=== PATIENT | male | born 1985 | race Caucasian/White ===

== ENCOUNTER 2018-06-30 12:37 | Emergency (ER) | payer OTHER ==
[~2018-06-30] VITALS: Ht 182.9 cm; Wt 90.7 kg
[~2018-06-30 12:37] MED LIST: BICA50 PO; BRETHINE PO; BUPR100 PO; DOXE50 PO; FLUO10; FLUO10 PO; Hydroxyzine HCl50 MG PO; LAMO25 PO; LAMO5; NAPR550 PO; QUET200 PO; TERB5 PO; Ultram50 MG PO
[2018-06-30] MEDS ORDERED: TERB5 PO (13:08)
== END 2018-06-30 13:17 | disposition home or self-care (01) ==
LOC: ER 12:37
DX: N48.30 Priapism, unspecified (principal); Z76.0 Encounter for issue of repeat prescription; Z88.8 Allergy status to other drugs, medicaments and biological substances; Z79.899 Other long term (current) drug therapy
CPT/HCPCS: 99281

== ENCOUNTER 2018-07-15 08:05 | Emergency (ER) | payer OTHER ==
[~2018-07-15] VITALS: Ht 182.9 cm; Wt 95.2 kg
== END 2018-07-15 13:10 | disposition short-term general hospital (02) ==
LOC: ER 08:05
DX: N48.30 Priapism, unspecified (principal); Z88.8 Allergy status to other drugs, medicaments and biological substances; Z87.891 Personal history of nicotine dependence
CPT/HCPCS: 54220; 96372-59; 99284-25; A9270-GY; J2370

== ENCOUNTER → 2018-07-19 | Outpatient (CLI) | payer OTHER ==
[~2018-07-19] MED LIST changes: +Augmentin 875-1 EACH PO; +BICALUTAMIDE50 MG PO; +NEOPOLHCSU RIGHTEAR
[2018-07-22 07:07] LABS: CHLAMYDIA TRACHOMATIS, NAA Negative (Negative); NEISSERIA GONORRHOEAE, NAA Negative (Negative)
== END | disposition home or self-care (01) ==
LOC: LAB SHORT 10:15 → LAB SRC 10:15
PROVIDERS: Nurse Practitioner Family
DX: Z72.52 High risk homosexual behavior (principal)
CPT/HCPCS: 87491; 87591

== ENCOUNTER 2018-09-09 10:48 | Emergency (ER) | payer OTHER ==
[~2018-09-09] VITALS: Ht 182.9 cm; Wt 106.6 kg
[~2018-09-09 10:48] MED LIST changes: -Augmentin 875-1 EACH PO; -BICALUTAMIDE50 MG PO; -NEOPOLHCSU RIGHTEAR
[2018-09-09 12:45] LABS: Calcium, Ionized (POC) 1.21 mmol/L (1.10-1.46); Chloride (POC) 101 mmol/L (98-108); Creatinine (POC) 1.1 mg/dL (0.8-1.3); Glucose (ISTAT POC) 87 mg/dL (70-99); Hemoglobin (POC) 15.6 g/dL (13.5-17.5); Sodium (POC) 138 mmol/L (135-148); Total CO2 (POC) 28 mmol/L (21-32)
[2018-09-09] MEDS ORDERED: Augmentin 875-1 EACH PO (13:33)
[2018-09-09] MEDS ORDERED: NEOPOLHCSU RIGHTEAR (13:33)
== END 2018-09-09 13:45 | disposition home or self-care (01) ==
LOC: ER 10:48
PROVIDERS: Physician Assistant
DX: H60.91 Unspecified otitis externa, right ear (principal); Z87.891 Personal history of nicotine dependence; Z88.8 Allergy status to other drugs, medicaments and biological substances
CPT/HCPCS: 36415; 70487; 80047; 85014; 99283-25; Q9967

== ENCOUNTER 2018-10-16 11:13 | Emergency (ER) | payer OTHER ==
[~2018-10-16] VITALS: Ht 182.9 cm; Wt 99.8 kg
[~2018-10-16 11:13] MED LIST changes: +Augmentin 875-1 EACH PO; +NEOPOLHCSU RIGHTEAR
[2018-10-16] MEDS ORDERED: BICALUTAMIDE50 MG PO (11:25)
== END 2018-10-16 11:59 | disposition left against medical advice (07) ==
LOC: ER 11:13
DX: Z53.21 Procedure and treatment not carried out due to patient leaving prior to being seen by health care provider (principal)

== ENCOUNTER 2020-07-27 21:07 | Emergency (ER) | payer OTHER ==
[~2020-07-27] VITALS: Ht 182.9 cm; Wt 99.8 kg
[~2020-07-27 21:07] MED LIST changes: +BICALUTAMIDE50 MG PO
[2020-07-27 22:00] LABS: Calcium, Ionized (POC) 1.21 mmol/L (1.10-1.46); Chloride (POC) 102 mmol/L (98-108); Glucose (ISTAT POC) 82 mg/dL (70-99); Sodium (POC) 139 mmol/L (135-148); Total CO2 (POC) 24 mmol/L (21-32)
== END 2020-07-27 23:36 | disposition home or self-care (01) ==
LOC: ER 21:07
PROVIDERS: Emergency Medicine
DX: S29.9XXA Unspecified injury of thorax, initial encounter (principal); S39.012A Strain of muscle, fascia and tendon of lower back, initial encounter; S61.012A Laceration without foreign body of left thumb without damage to nail, initial encounter; N48.30 Priapism, unspecified; F17.290 Nicotine dependence, other tobacco product, uncomplicated
CPT/HCPCS: 36415; 54235; 71260; 74177; 80047; 85014; 99284-25; A9270; J2370; Q9967

== ENCOUNTER 2022-08-02 16:14 | Inpatient (IN) | payer OTHER ==
[~2022-08-02] VITALS: Ht 185.4 cm; Wt 84.5 kg
[~2022-08-02 16:14] MED LIST changes: +CEPH500 PO; +OXAYDO5 M1 PO
[2022-08-02 17:42] LABS: BASOPHILS ABSOLUTE AUTO 0.07 K/mm3 (0.00-0.23); BASOPHILS PERCENT AUTO 1 % (0-2); EOSINOPHILS ABSOLUTE AUTO 0.15 K/mm3 (0.00-0.68); EOSINOPHILS PERCENT AUTO 2 % (0-6); Hematocrit 44.2 % (37.0-53.0); Hemoglobin 15.2 g/dL (13.5-17.5); IMMATURE GRAN ABSOLUTE AUTO 0.01 K/mm3 (0.00-0.10); IMMATURE GRAN PERCENT AUTO 0 % (0-1); LYMPHOCYTES PERCENT AUTO 27 % (21-46); MONOCYTES ABSOLUTE AUTO 0.64 K/mm3 (0.16-1.47); MONOCYTES PERCENT AUTO 8 % (4-13); Mean Corpuscular HGB 29.3 pg (26.0-34.0); Mean Corpuscular HGB Conc 34.4 g/dL (31.5-36.5); Mean Corpuscular Volume 85 fL (80-100); Mean Platelet Volume 9.2 fL (9.1-12.4); NEUTROPHILS ABSOLUTE AUTO 5.34 K/mm3 (1.96-9.15); NEUTROPHILS PERCENT AUTO 63 % (41-73); Platelet Count 337 K/mm3 (150-400); RDW Coefficient Variation 12.1 % (11.7-14.2); RDW Standard Deviation 37.6 fL (35.1-46.3); Red Blood Cell Count 5.19 M/mm3 (4.30-5.90); White Blood Cell Count 8.51 K/mm3 (4.00-11.30)
[2022-08-02 18:04] LABS: Albumin, Blood 3.8 g/dL (3.4-5.0); Bilirubin, Total 0.9 mg/dL (0.1-1.0); Bun/Creatinine Ratio 13.4 (12.0-20.0); Calcium, Blood 9.3 mg/dL (8.5-10.1); Creatinine, Blood 1.27 mg/dL (0.60-1.20); Globulin, Blood 3.9 g/dL (2.2-4.0); Potassium, Blood 4.4 mmol/L (3.5-5.5); Total Protein, Blood 7.7 g/dL (6.4-8.2)
[2022-08-02 22:51] VITALS: BP 130/86
[2022-08-03 04:42] VITALS: BP 113/73
[2022-08-03 05:23] LABS: BASOPHILS ABSOLUTE AUTO 0.07 K/mm3 (0.00-0.23); BASOPHILS PERCENT AUTO 1 % (0-2); EOSINOPHILS ABSOLUTE AUTO 0.29 K/mm3 (0.00-0.68); EOSINOPHILS PERCENT AUTO 3 % (0-6); Hematocrit 41.3 % (37.0-53.0); Hemoglobin 14.1 g/dL (13.5-17.5); IMMATURE GRAN ABSOLUTE AUTO 0.02 K/mm3 (0.00-0.10); IMMATURE GRAN PERCENT AUTO 0 % (0-1); LYMPHOCYTES ABSOLUTE AUTO 3.71 K/mm3 (0.84-5.20); LYMPHOCYTES PERCENT AUTO 41 % (21-46); MONOCYTES PERCENT AUTO 9 % (4-13); Mean Corpuscular HGB 29.7 pg (26.0-34.0); Mean Corpuscular HGB Conc 34.1 g/dL (31.5-36.5); Mean Corpuscular Volume 87 fL (80-100); Mean Platelet Volume 9.4 fL (9.1-12.4); NEUTROPHILS ABSOLUTE AUTO 4.27 K/mm3 (1.96-9.15); NEUTROPHILS PERCENT AUTO 47 % (41-73); Platelet Count 336 K/mm3 (150-400); RDW Coefficient Variation 12.3 % (11.7-14.2); RDW Standard Deviation 39.3 fL (35.1-46.3); Red Blood Cell Count 4.74 M/mm3 (4.30-5.90); White Blood Cell Count 9.16 K/mm3 (4.00-11.30)
[2022-08-03 06:05] LABS: Albumin, Blood 3.3 g/dL (3.4-5.0); Bilirubin, Total 0.7 mg/dL (0.1-1.0); Bun/Creatinine Ratio 16.2 (12.0-20.0); Calcium, Blood 8.5 mg/dL (8.5-10.1); Creatinine, Blood 1.3 mg/dL (0.60-1.20); Globulin, Blood 3.3 g/dL (2.2-4.0); Potassium, Blood 3.6 mmol/L (3.5-5.5); Total Protein, Blood 6.6 g/dL (6.4-8.2)
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
[2022-08-03 07:42] VITALS: BP 106/71
[2022-08-03 15:43] VITALS: BP 91/65
[2022-08-03 16:11] LABS: Vancomycin, Trough 20.1 ug/mL (5.0-10.0)
[2022-08-03 17:26] VITALS: BP 128/91
--- NOTE | 2022-08-03 17:38 | NUR ---
PATIENT WITH PAIN TODAY MEDICATED PER EMAR WITH RELEIF, SOME NAUSEA THIS MORNING. VANCOMYCIN 1600 DOSE NOT BROUGHT UP UNTIL 1700 DUE TO WAITING ON LAB FOR VANCO TROUGH. PATIENT LEFT FLOOR AT 1510, SO EVENING VANCO NOT YET STARTED.
[2022-08-03 18:03] VITALS: BP 105/80
[2022-08-03 19:26] VITALS: BP 150/94
[2022-08-04] VITALS (11 sets, daily range): BP systolic 104–146; BP diastolic 67–97
[2022-08-04 05:34] LABS: BASOPHILS ABSOLUTE AUTO 0.04 K/mm3 (0.00-0.23); BASOPHILS PERCENT AUTO 1 % (0-2); EOSINOPHILS ABSOLUTE AUTO 0.18 K/mm3 (0.00-0.68); EOSINOPHILS PERCENT AUTO 3 % (0-6); Hemoglobin 12.8 g/dL (13.5-17.5); IMMATURE GRAN ABSOLUTE AUTO 0.01 K/mm3 (0.00-0.10); IMMATURE GRAN PERCENT AUTO 0 % (0-1); LYMPHOCYTES ABSOLUTE AUTO 2.45 K/mm3 (0.84-5.20); LYMPHOCYTES PERCENT AUTO 46 % (21-46); MONOCYTES ABSOLUTE AUTO 0.41 K/mm3 (0.16-1.47); MONOCYTES PERCENT AUTO 8 % (4-13); Mean Corpuscular HGB Conc 34.6 g/dL (31.5-36.5); Mean Corpuscular Volume 87 fL (80-100); Mean Platelet Volume 9.3 fL (9.1-12.4); NEUTROPHILS ABSOLUTE AUTO 2.22 K/mm3 (1.96-9.15); NEUTROPHILS PERCENT AUTO 42 % (41-73); Platelet Count 249 K/mm3 (150-400); RDW Coefficient Variation 12.1 % (11.7-14.2); RDW Standard Deviation 38.5 fL (35.1-46.3); Red Blood Cell Count 4.26 M/mm3 (4.30-5.90); White Blood Cell Count 5.31 K/mm3 (4.00-11.30)
--- NOTE | 2022-08-04 06:02 | NUR ---
SHIFT SUMMARY PT HAD A LARGE AMOUNT OF FOOD AND DRINKS AFTER BEING CLEARED TO EAT UNTIL MIDNIGHT. PT FELT NAUSEOUS RIGHT AFTER CONSUMPTION, PRN ZOFRAN GIVEN WITH NO EFFECT. SUGGEST PT SMELL ALCOHOL PADS, THIS SUBSIDED NAUSEA AND PT REQUESTED MORE FOOD. NOTHING TO EAT OR DRINK AFTER MIDNIGHT. PRN PAIN MEDICATION REQUESTED ONE TIME. PT RESTING COMFORTABLY.
[2022-08-04 06:15] LABS: Bun/Creatinine Ratio 11.8 (12.0-20.0); Calcium, Blood 8.2 mg/dL (8.5-10.1); Creatinine, Blood 1.1 mg/dL (0.60-1.20)
--- NOTE | 2022-08-04 08:48 | NUR ---
PLACED $92 IN SAFE, LOCKED PER PT REQUEST.
--- NOTE | 2022-08-04 14:44 | NUR ---
THE PATIENT WAS BROUGHT TO DAY SURGERY FOR HIS PROCEDURE.
--- NOTE | 2022-08-04 18:13 | NUR ---
SHIFT SUMMARY PATIENT IS ALERT AND ORIENTED. PATIENT HAS HAD SURGERY ON FOREARM. SURGERY WENT WELL ACCORDING TO NOTES. PATIENT HAS HAD COMPLAINTS OF PAIN, MEDICATED PER EMAR. PATIENT HAS NOT COMPLAINED OF SOB, NAUSEA, OR VOMITTING. PATIENT IS IND IN ROOM. PATIENT HAS BEEN GETTING ABX SCHEDULED. PATIENT HAS BEEN PLEASENT AND COOPERATIVE WITH CARE. BED IN LOCKED AND LOWEST POSITION. CALL LIGHT IN PLACE. WILL MONITOR UNTIL SHIFT CHANGE.
[2022-08-04 18:26] LABS: Vancomycin, Trough 17.4 ug/mL (5.0-10.0)
[2022-08-05 04:05] VITALS: BP 110/82
--- NOTE | 2022-08-05 05:58 | NUR ---
SHIFT SUMMARY PT SLEPT WELL OVERNIGHT. PRN PERCOCET GIVEN TWICE DURING SHIFT FOR PAIN WITH POSITIVE RESULTS, AND ONE COMPLAINT OF NAUSEA, RESOLVED WITH PRN ZOFRAN ADMIN. PT RESTING COMFORTABLY WITH CALL HOSKINS IN REACH
[2022-08-05 07:54] VITALS: BP 104/80
[2022-08-05 08:37] LABS: BASOPHILS ABSOLUTE AUTO 0.04 K/mm3 (0.00-0.23); BASOPHILS PERCENT AUTO 0 % (0-2); EOSINOPHILS ABSOLUTE AUTO 0.04 K/mm3 (0.00-0.68); EOSINOPHILS PERCENT AUTO 0 % (0-6); Hemoglobin 13.9 g/dL (13.5-17.5); IMMATURE GRAN ABSOLUTE AUTO 0.04 K/mm3 (0.00-0.10); IMMATURE GRAN PERCENT AUTO 0 % (0-1); LYMPHOCYTES PERCENT AUTO 20 % (21-46); MONOCYTES ABSOLUTE AUTO 0.95 K/mm3 (0.16-1.47); MONOCYTES PERCENT AUTO 8 % (4-13); Mean Corpuscular HGB 29.3 pg (26.0-34.0); Mean Corpuscular HGB Conc 33.9 g/dL (31.5-36.5); Mean Corpuscular Volume 87 fL (80-100); Mean Platelet Volume 9.3 fL (9.1-12.4); NEUTROPHILS ABSOLUTE AUTO 8.86 K/mm3 (1.96-9.15); NEUTROPHILS PERCENT AUTO 72 % (41-73); Platelet Count 311 K/mm3 (150-400); RDW Coefficient Variation 11.9 % (11.7-14.2); RDW Standard Deviation 37.8 fL (35.1-46.3); Red Blood Cell Count 4.74 M/mm3 (4.30-5.90); White Blood Cell Count 12.33 K/mm3 (4.00-11.30)
[2022-08-05 08:59] LABS: Bun/Creatinine Ratio 15.4 (12.0-20.0); Calcium, Blood 8.5 mg/dL (8.5-10.1); Creatinine, Blood 1.17 mg/dL (0.60-1.20); Potassium, Blood 4.2 mmol/L (3.5-5.5)
[2022-08-05 15:16] VITALS: BP 123/81
--- NOTE | 2022-08-05 16:48 | NUR ---
SHIFT SUMMARY PATIENT WITH SOME PAIN THIS MORNING, MEDICATED PER EMAR WITH PERCOCET, NO IV PAIN MED NEEDED TODAY. EDUCATION PROVIDED ON ELEVATION OF EXTREMETY, PATIENT REPORTS THIS HAS HELPED REDUCE PAIN SIGNIFICANTLY. PARTNER PRESENT IN ROOM MOST OF DAY. PATIENT COOPERATIVE WITH CARE. BED IN LOW POSITION, CALL LIGHT IN REACH. WILL CONTINUE TO MONITOR.
[2022-08-05 20:43] VITALS: BP 162/111
--- NOTE | 2022-08-06 03:30 | NUR ---
SHIFT SUMMARY NOC PT A/O X 4. PLEASANT AND COOPERATIVE WITH CARE. PT HAS BRENTON DRESSING IN PLACE OVER RIGHT ARM FROM I/D PERFORMED 08/05/22, DRESSING C/D/I. NO ACUTE CHANGES TO REPORT. PT TAKING ZOSYN/VANCO ABX FOR INFECTION. PT HAS HAD NO C/O OF URINATION ISSUES DURING SHIFT. PT IS CURRENTLY RESTING WITH BED IN LOWEST POSITION, AND CALL LIGHT WITHIN REACH.
[2022-08-06 03:33] VITALS: BP 128/65
--- NOTE | 2022-08-06 03:50 | NUR ---
SHIFT SUMMARY NOC PT A/O X 4. PLEASANT AND COOPERATIVE WITH CARE. PT HAS BRENTON DRESSING IN PLACE OVER RIGHT ARM FROM I/D PERFORMED 08/05/22, DRESSING C/D/I. NO ACUTE CHANGES TO REPORT. PT TAKING ZOSYN/VANCO ABX FOR INFECTION. PT HAS HAD NO C/O OF URINATION ISSUES DURING SHIFT. PT EDUCATED ON [facility] IGNITION/NON SMOKING POLICY. PT IS CURRENTLY RESTING WITH BED IN LOWEST POSITION, AND CALL LIGHT WITHIN REACH.
--- NOTE | 2022-08-06 04:22 | NUR ---
PT RECEIVED EDUCATION ON [facility] EXPLOSIVE IGNITION MATERIALS SAFETY POLICY.
[2022-08-06 07:41] VITALS: BP 111/71
--- NOTE | 2022-08-06 08:00 | NUR ---
PT PLEASNT COOP A/O X3. TALKATIVE. STATES PAIN IN RT ARM . CURRENTLY WRAPPED IN BRENTON BANDAGE. PULSES FELT AT WRIST. FINGERS NORMAL PINK WARM, COLOR. NO DRAINAGE NOTED. H/R REG, NO MURMUR NOTED. NO TELE. LUNGS CLEAR, RESP EASY, UNLABORED. ON R.A. BT X4 LAST BM TODAY. STATES IS DIARRHEA SINCE LAST NITES. WILL SPEAK TO DRCarlo WHEN SEE. VIODS INDEPENDANT TO BATHROOM. BED IN LOW POSITION, CALLLITE IN REACH. S/O FRIEND LYING ON BED AT SIDE. PT STAATES DOES SMOKE, DOES NOT HAVE ANY SMOKING ITEMS HERE. HAS NICOTINE PATCH. DENIES ANY IGNITION FLAMMABLE ITEMS
[2022-08-06 09:46] LABS: Creatinine, Blood 0.99 mg/dL (0.60-1.20); Vancomycin, Trough 15.3 ug/mL (5.0-10.0)
--- NOTE | 2022-08-06 12:11 | NUR ---
PT STATES DIARRHEA SINCE ABX. SPOKE TO DR LOZA. ORDERS FOR ANTIDIARHEAL
[2022-08-06 14:58] VITALS: BP 112/74
--- NOTE | 2022-08-06 15:14 | NUR ---
PT REPORTS DIZZINESS AND CONTINUED DIARRHEA. GAVE LOMICTAL. CALLED DR LOZA, RECOMMENDS MORE WATER AND REST. 2 LARGE WATER CUPS GIVEN
--- NOTE | 2022-08-06 18:32 | NUR ---
PT PLEASNT TODAY. STATES WAS DIZZY OR LIGHT HEADED DURING AMBULATION TO BATHROOM R/T DIARRHEA. ENCOURAGED MORE FLUID INTAKE. BROUGHT 2 LARGE CONTAINERS WATER. CALLED DR LOZA. IMMODIUM ORDERED AND GIVEN, ALONG WITH IINCREASED FLUID INTAKE. PT STATES IS PRESENTLY HOMELESS AND CARE MANAGEMENT STATES MIGHT BE ABLE TO FIND HOUSING, DR ALCOCER. DR URENA IN TO CHANGE DRESSING. LOOKS CDI. REPACKED. ORDERS FOR DAILY CHANGE. NO OTHER CONCERNS NOTED. BED IN LOW POSITION, CALL LITE IN REACH, CALLS APPROP
[2022-08-06 19:25] VITALS: BP 122/76
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
[2022-08-07 05:31] VITALS: BP 100/70
[2022-08-07 07:45] VITALS: BP 123/84
[2022-08-07 15:59] VITALS: BP 138/110
[2022-08-07 16:42] VITALS: BP 148/99
--- NOTE | 2022-08-07 17:59 | NUR ---
NURSE NOTE PATIENT WAS EDUCATED AND ASSESSED FOR FIRE RISK
[2022-08-07 19:36] VITALS: BP 135/89
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
[2022-08-08 07:20] VITALS: BP 113/74
--- NOTE | 2022-08-08 08:48 | NUR ---
pt sitting on side of bed asking for pain meds, a/ox4, cooperative with care, follows commands well, reports pain at 6/10, medicated per emar, lungs are clear t/o, resp even and unlabored, no cough noted, on r/a, hrr, no edema noted, ppp+2, cap refill<3sec, vs stable, afebrile, btx4, abd flat soft nontender, voids without diff, skin c/w/d, maew, hernandez, call light in reach.
--- NOTE | 2022-08-08 13:12 | NUR ---
pt dressing was changed and repacked, pt medicated prior and tolerated well. up ad sheila in room and out in halls. call light in reach.
[2022-08-08 15:58] VITALS: BP 152/97
--- NOTE | 2022-08-08 18:13 | NUR ---
pt had an uneventful day, motel secured for him and he is happy about that, dressing was changed today, pt tolerated well, instructed if any sources of ignition, was denied, no further changes this shift. call light in reach.
[2022-08-08 19:27] VITALS: BP 136/104
[2022-08-09 05:00] VITALS: BP 115/78
--- NOTE | 2022-08-09 05:20 | NUR ---
Shift Summary Pt c/o pain in R arm, medicated per emar. Dressing C/D/I t/o shift. Slept well t/o most of the shift. AOx4, independent in room, VSS.
[2022-08-09 07:28] VITALS: BP 141/126
[2022-08-09 07:34] VITALS: BP 116/87
[2022-08-09] MEDS ORDERED: AMOX-CLAV 875-1 EAC5 PO (10:28)
[2022-08-09] MEDS ORDERED: Percocet 5-3251 EACH PO (10:29)
--- NOTE | 2022-08-09 15:17 | NUR ---
PT DISCHARGED WITH DC INSTRUCTIONS- HAS HARD SCRIPT FOR PERCOCET. SENT HOME WITH BELONGINGS. WHEELCHAIR OUT TO [facility]OU[facility] TO [facility] FOR 2 WEEKS. PT INSTRUCTED TO FOLLOWUP WITH OUTPATIENT WOUND CLINIC. DRESSING CHANGED TO RFA AT 1245 JUST PRIOR TO DC. PACKED WOUND WITH IODIFORM GAUZE, XEREFORM AND ABD, KERLEX AND BRENTON. MEDICATED FOR PAIN PRIOR AT 1210. PT VERBALIZED UNDERSTANDING OF ALL INSTRUCTIONS.
== END 2022-08-09 13:09 | disposition home or self-care (01) | DRG 856 ==
LOC: ER 16:14 → MEDS 22:41 → SURS 22:41 → MEDS 22:46 → ENPENDDIS 08-09 10:47 → MEDS 08-09 13:09
PROVIDERS: Internal Medicine; Orthopaedic Surgery; Physician Assistant; ADMIT Internal Medicine
PROC: 3E03329 Introduction of Other Anti-infective into Peripheral Vein, Percutaneous Approach (ICD-10-PCS; 2022-08-02)
PROC: 0K990ZZ Drainage of Right Lower Arm and Wrist Muscle, Open Approach (ICD-10-PCS; principal; 2022-08-04 15:00)
DX: T81.44XA Sepsis following a procedure, initial encounter (principal); A41.9 Sepsis, unspecified organism; I82.611 Acute embolism and thrombosis of superficial veins of right upper extremity; N17.9 Acute kidney failure, unspecified; S41.111A Laceration without foreign body of right upper arm, initial encounter; W29.3XXA Contact with powered garden and outdoor hand tools and machinery, initial encounter; F17.210 Nicotine dependence, cigarettes, uncomplicated; Z59.02 Unsheltered homelessness; Z88.8 Allergy status to other drugs, medicaments and biological substances; Z79.899 Other long term (current) drug therapy; Z79.891 Long term (current) use of opiate analgesic; Z79.2 Long term (current) use of antibiotics; Z98.890 Other specified postprocedural states
CPT/HCPCS: 36415; 73201; 80048; 80053; 80202; 82565; 82947; 83605; 85025; 94760; 96365-59; 96375-59; 99285-25; A9270; J0295; J1100; J1170; J1644; J1885; J2250; J2405; J2543; J2704; J3010; J3370; J7030; J7050; J7120; Q9967

== ENCOUNTER 2022-08-20 23:33 | Emergency (ER) | payer OTHER ==
[~2022-08-20] VITALS: Ht 185.4 cm; Wt 89.4 kg
[~2022-08-20 23:33] MED LIST changes: +AMOX-CLAV 875-1 EAC5 PO; +Percocet 5-3251 EACH PO
[2022-08-20 23:41] VITALS: BP 120/89
== END 2022-08-21 00:23 | disposition home or self-care (01) ==
LOC: ER 23:33
DX: S51.801A Unspecified open wound of right forearm, initial encounter (principal); Z88.8 Allergy status to other drugs, medicaments and biological substances; X58.XXXA Exposure to other specified factors, initial encounter
CPT/HCPCS: 99283; A9270